=== PATIENT | female | born 1975 | race Caucasian/White ===

== ENCOUNTER 2016-05-03 02:07 | Emergency (ER) | payer OTHER ==
[~2016-05-03] VITALS: Ht 170.2 cm; Wt 159.1 kg
[~2016-05-03 02:07] MED LIST: CETI10TA84 PO; HYDR-5688 PO; IBUP-1050 PO; NAPR220T40 PO; PRLSR20 PO
[2016-05-03 02:16] VITALS: TEMP 36.6; Ht 170.2 cm; Wt 159.1 kg
[2016-05-03] MEDS ORDERED: SODIUM CHLORIDE 0.9% 500ML 500 ML IV STA (02:33)
[2016-05-03] MEDS ORDERED: FAMOTIDINE 20MG/102 ML D5W IV STA (02:33)
[2016-05-03] MEDS ORDERED: DiphenhydrAMINE HCL 50 MG/ML VIAL IV STA (02:33)
[2016-05-03] MEDS ORDERED: METHYLPREDNISOLONE 125 MG VIAL IV STA (02:33)
[2016-05-03 03:04] VITALS: O2SAT 93
[2016-05-03] MEDS ORDERED: FLUO20CA35 PO (03:27)
[2016-05-03] MEDS ORDERED: PRO AIR INH (03:29)
[2016-05-03] MEDS ORDERED: PHENSYP13 PO (03:31)
[2016-05-03] MEDS ORDERED: PRED10TA PO (03:33)
[2016-05-03] MEDS ORDERED: CLAR500T3 PO (03:35)
[2016-05-03] MEDS ORDERED: PRED20TA PO (03:51)
--- NOTE | 2016-05-03 03:52 | EMERGENCY ROOM VISIT NOTE ---
History First contact with patient: 02:23 Chief Complaint: ALLERGIC REACTION Stated Complaint: HIVES History of Present Illness The patient is a 40 year old female who presents to the Emergency Department by private vehicle for evaluation of her itchiness and hives. On Wednesday evening she was placed on Biaxin as well as prednisone, cough syrup with codeine , and pronator for bronchitis. Last evening she developed a chest as well as hives. She is tried nothing [id number] for symptoms. She reports that her cough has improved. She is had no fevers or chills. She denies any throat swelling, tongue swelling, difficulty with breathing, dizziness, or lightheadedness. She rates her current discomfort as 4/10. She denies any chest pain, palpitations, shortness of breath. She complains of some mild swelling to the lower lip. Review of Systems A complete 10-point Review of Systems was discussed with the patient, with pertinent positives and negatives listed in the History of Present Illness. All remaining Review of Systems questions can be considered negative unless otherwise specified. Past Medical/Surgical History Medical Problems: (1) Asthma (2) GERD (gastroesophageal reflux disease) (3) Morbid obesity with BMI of 50.0-59.9, adult (4) PCOS (polycystic ovarian syndrome) Surgical Problems: (1) History of tonsillectomy Social History Smoking Status: Never Smoker Smokeless Tobacco Use: No Alcohol Use: occasionally Marital Status: Housing Status: lives with family Occupation Status: employed Current/Historical Medications Scheduled Clarithromycin (Biaxin), 500 MG PO BID Fluoxetine (Prozac), 20 MG PO DAILY Prednisone (Prednisone), 0 PO UD Prednisone (Prednisone), 0 PO DAILY Scheduled PRN Ibuprofen (Advil), 800 MG PO Q2-3H PRN for Pain Omeprazole (Prilosec), 20 MG PO DAILY PRN for GI Upset Promethaz/Phenylephrin/Codeine (Promethazine Vc/Codeine), 5 ML PO Q4H PRN for Cough [Pro Air], 2 PUFFS INH Q4H PRN for SOB/Wheezing Allergies Coded Allergies: Penicillins (Verified Allergy, Severe, hives, 11/03/15) Nut Tree (Verified Allergy, Unknown, throat swells, 11/03/15) Uncoded Allergies: OMANI CHEESE (Allergy, Unknown, UNKNOWN, 05/03/16) Physical Exam Vital Signs Date Time Temp Pulse Resp B/P Pulse Ox O2 Delivery O2 Flow Rate FiO2 05/03/16 04:02 82 20 144/79 94 05/03/16 03:28 82 20 144/79 92 Room Air 05/03/16 03:04 93 Room Air 05/03/16 03:04 95 Room Air 05/03/16 02:16 36.6 88 20 194/95 93 Room Air Pain Rating (0-10): 4 Physical Exam VITAL SIGNS - Vital signs and nursing notes were reviewed. GENERAL - 40-year-old female appearing her stated age. Communicates well with provider and answers questions appropriately. SKIN - Gross examination of the entire body surface demonstrates multiple small erythematous urticaria to the upper and lower extremities as well as trunk. Lesions are blanchable. HEAD - Normocephalic, Atraumatic. EYES - PERRL with EOMI bilaterally. Without periorbital edema. Without subconjunctival hemorrhage. Palpebral conjunctiva pink and moist with no injection. EARS - No deformities of external structures noted on gross examination bilaterally. No hemotympanum present. No tympanic perforation noted. Handle of malleus, umbo, cone of light, pars tensa/flaccid all easily visualized. NOSE - Midline and without cyanosis. No epistaxis or clear watery discharge noted. Septum midline without deviation. No septal hematoma noted. No overlying ecchymosis noted. MOUTH/OROPHARYNX - Without perioral cyanosis. No angioedema appreciated. Tongue midline with equal elevation of palate bilaterally. No blood noted in the oropharynx. No tonsillar hypertrophy, erythema, or exudates noted. NECK - Supple to palpation. LUNGS - Chest wall symmetric without accessory muscle use, intercostals retractions, or central cyanosis. Without stridor. No active wheezes. Normal vesicular breath sounds CTA B/L. No rales or rhonchi appreciated. CARDIAC - RRR with S1/S2. No murmur, rubs, or gallops appreciated. NEUROLOGIC - Cranial nerves II through XII grossly intact. Sensory intact to light touch throughout. PSYCH - A&Ox3 and cooperates fully with examiner. Pt is very pleasant and interacts well with examiner. Medical Decision & Procedures Medications Administered Medications (Trade) Dose Ordered Sig/Yesica Route Start Time Stop Time Status Last Admin Dose Admin Sodium Chloride (Nss 500ml) 500 ml @ 999 mls/hr Q31M STAT IV 05/03/16 02:33 05/03/16 03:03 DC 05/03/16 03:00 999 MLS/HR Methylprednisolone Sodium Succinate (Solu-Medrol IV) 125 mg NOW STAT IV 05/03/16 02:33 05/03/16 02:35 DC 05/03/16 03:01 125 MG Diphenhydramine HCl (Benadryl Inj) 25 mg NOW STAT IV 05/03/16 02:33 05/03/16 02:35 DC 05/03/16 03:01 25 MG Famotidine (Pepcid 20mg/100 ml) 20 mg ONE STAT IV 05/03/16 02:33 05/03/16 02:35 DC 05/03/16 03:04 20 MG Procedure Patient was placed on the cardiac catheterization technician and monitored throughout the entire extent of their stay. In addition, the patient's pulse oximetry was monitored throughout the entire stay. Any abnormalities or aberrancies were addressed appropriately. ED Course Patient was seen and evaluated by myself. IV lock was established. Patient was placed on the monitor throughout her stay. She was hydrated with a 500 mL normal saline bolus. She received 125 mg Solu-Medrol, 25 mg Benadryl, and 20 mg Pepcid intravenously. Patient was reevaluated and reports feeling much better at this time. Her hives have diminished. Patient will be placed on a longer prednisone taper. She'll follow-up with her primary care provider from today's visit. She will return for any changing or worsening symptoms. Patient discharged home afebrile and in good condition. Medical Decision Given the patient's presentation and exam findings, I did elect to perform the above-mentioned workup. The patient presents today with a diffuse urticarial rash. She is on 3 different medications. She has no exam findings consistent with significant anaphylaxis. She responded well to IV fluid hydration, steroids, and Benadryl. The patient will be placed on a longer prednisone taper. She will follow with her primary care provider from today's visit. She will return for any changing or worsening symptoms. Patient discharged home in good condition. In the evaluation and treatment of this patient, the following differential diagnoses were considered: Cellulitis, dermatitis, anaphylaxis, medication reaction, viral exanthem, amongst others. Impression Primary Impression: Allergic reaction Additional Impression: Adverse reaction to drug Departure Information Dispostion Home / Self-Care Condition GOOD Prescriptions Prednisone (Prednisone) 20 Mg Tab 0 PO DAILY, #18 TAB 3 DAILY FOR 3 DAYS, THEN 2 DAILY FOR 3 DAYS, THEN 1 DAILY FOR 3 DAYS. Prov: Sumit Vergara, ILEANA 05/03/16 Referrals Jonh Walters III, M.D. (PCP) Patient Instructions A Signature Page, My [facility] Additional Instructions You have been treated in the Emergency Department for an Allergic Reaction. You have been treated and monitored in the Emergency Department appropriately. You should take Benadryl (diphenhydramine) 25-50 mg orally every 4-6 hours for the next 5-7 days. This medication is [id number] and you will NOT need a prescription to purchase this at your local pharmacy. You should continue taking the Benadryl for the COMPLETION of the 5-7 days. This is to prevent a rebound allergic reaction in the event that allergens are still present in your system. You should take Zantac (ranitidine) 75 mg orally once daily for the next 7 days. This medication is [id number] and you will NOT need a prescription to purchase this at your local pharmacy. You should continue taking the Zantac for the COMPLETION of the 7 days. This is to prevent a rebound allergic reaction in the event that allergens are still present in your system. You have been prescribed Prednisone to be taken orally once a day for the next several days. This is an anti-inflammatory medicine to be used to help minimize your symptoms. You should take the COMPLETE course of the medication. As with every Emergency Department visit, you should follow-up with your primary care provider in 2-3 days for reevaluation. Return to the Emergency Department if your current symptoms worsen despite treatment course outlined above, or if you develop any of the following symptoms : wheezing, tongue or face swelling, tightness in your throat, shortness of breath, or fainting.
[2016-05-03 04:02] VITALS: BP 144/79; PULSE 82; O2SAT 94
== END 2016-05-03 04:11 | disposition home or self-care (01) ==
LOC: C.EDB 02:08
DX: L50.9 Urticaria, unspecified (principal); T36.3X5A Adverse effect of macrolides, initial encounter; T38.0X5A Adverse effect of glucocorticoids and synthetic analogues, initial encounter; T40.2X5A Adverse effect of other opioids, initial encounter; J45.909 Unspecified asthma, uncomplicated; E28.2 Polycystic ovarian syndrome; E66.01 Morbid (severe) obesity due to excess calories; Z79.52 Long term (current) use of systemic steroids